=== PATIENT | male | born 1960 | race Caucasian/White ===

== ENCOUNTER 2021-09-10 05:51 | Emergency (ER) | payer OTHER, SELFPAY ==
--- NOTE | 2021-09-10 06:22 | ED_ITS ---
HPI - CPR General Chief Complaint: Cardiac Arrest/CPR Stated Complaint: Cardiac Arrest Time Seen by Provider: 09/10/21 06:22 Source: family () and EMS Mode of arrival: EMS History of Present Illness HPI narrative: 61-year-old male with history of asthma and CAD as reported by family members, who was brought in by EMS with ongoing CPR. As per EMS and later corroborated by family patient had gotten up to go to the bathroom and then had heard him fall and when she went out to investigate he was noted to be laying down face up and unresponsive. The then called police who she states arrived very quickly and initiated CPR. As per EMS on arrival patient was unresponsive apneic and epi was initiated for total of 4, patient was then felt to be in of bradycardic perfusing rhythm and atropine was administered. Patient then went into PE a and then reverted back to bradycardia and at that time EMS attempted to pace the patient and placed taking to. They then proceeded to this emergency room. Related Data Allergies Allergy/AdvReac Type Severity Reaction Status Date / Time Unable to Assess Allergy Verified 09/10/21 06:40 Review of Systems Review of Systems: Yes unobtainable due to endotracheal tube PMFSH Past Medical History PMF Narrative: Asthma, CAD with cardiac stents Source: obtained from family Social History Social History Advance Directives: No Physical Exam Vital Signs: Vital Signs: BMI result Body Mass Index 25.8 Patient arrived with CPR in progress with good capnography, Cooper tube in place, in asystole. Course Course Course Narrative: 61-year-old male with history and clinical presentation consistent with cardiac arrest, please refer to the code sheet for details. All efforts were unsuccessful and after 28 minutes time of was called at 6:18 a.m., patient noted to be in PEA. Reevaluation(s) Reevaluation #1: and family members were notified patient's passing. provided that patient received all care it [facility]. Time: 07:10 MDM - Cardiac Arrest/CPR Lab Data Labs: Lab Results 09/10/21 Range/Units 06:06 COVID-19 (SUNDAY) Negative (Negative) COVID-19 Clin Com See Note Critical Care Time Critical Care Time Critical Care Time: Yes Total Critical Care Time: 30 Attestation: I personally attest to this time spent taking care of the patient. Discharge Plan Discharge Clinical Impression: Cardiac arrest Patient Disposition: Date/Time: 09/10/21 06:18
[2021-09-10 06:34] VITALS: BMI 25.8
[2021-09-10 06:47] LABS: COVID-19 Test Negative (Negative); IDNOW Serial# 9DD0AD1C
--- NOTE | 2021-09-10 06:58 | PC.NURSE ---
CALL OUT TO [employer] [employer] [facility] @[phone]. WAITING FOR CALL BACK
--- NOTE | 2021-09-10 07:01 | PC.NURSE ---
I spoke with [facility], Briseida, who states they will accept this patient. Case# [id number]
[2021-09-10 09:11] LABS: Glucose, Whole Blood 95 mg/dL (60-115)
== END 2021-09-10 11:51 | disposition expired ==
PROVIDERS: Emergency Provider Student in an Organized Health Care Education/Training Program; PCP Nurse Practitioner Family
DX: I46.9 Cardiac arrest, cause unspecified (principal); Z20.822 Contact with and (suspected) exposure to COVID-19; J45.909 Unspecified asthma, uncomplicated
CPT/HCPCS: 82947; 87635; 96374; 96375; 99282; 99285; J0171; J0282; J0461